=== PATIENT | male | born 1960 | race Caucasian/White ===

== ENCOUNTER 2025-02-04 03:20 | Emergency (ER) | payer MEDICAID ==
[2025-02-04 03:50] LABS: BASOPHILS ABSOLUTE AUTO 0.1 x10-3/uL (0.0-0.3); BASOPHILS PERCENT AUTO 1.1 % (0.3-3.8); EOSINOPHILS ABSOLUTE AUTO 0.4 x10-3/uL (0.0-0.6); EOSINOPHILS PERCENT AUTO 6.2 % (0.1-6.8); LYMPHOCYTES ABSOLUTE AUTO 1.8 x10-3/uL (0.5-4.5); LYMPHOCYTES PERCENT AUTO 24.4 % (15.8-45.3); MEAN PLATELET VOLUME 7.9 fL (6.7-11.0); MONOCYTES ABSOLUTE AUTO 1.0 x10-3/uL (0.0-1.2); MONOCYTES PERCENT AUTO 13.6 % (5.5-15.2); NEUTROPHILS ABSOLUTE AUTO 4.0 x10-3/uL (1.7-6.9); NEUTROPHILS PERCENT AUTO 54.7 % (40.3-71.8); PLATELET COUNT,PLT 138 x10(3)uL (117-477); RED BLOOD CELL COUNT 4.07 x10(6)uL (3.90-5.90); RED CELL DISTRIBUTION WIDTH 14.3 % (12.4-15.0); WHITE BLOOD CELL COUNT,WBC 7.3 x10-3/uL (3.2-10.1)
[2025-02-04 03:59] LABS: INR 1.35 (1.00-1.24)
[2025-02-04 04:00] LABS: A/G RATIO 0.7; ALANINE AMINOTRANSFERASE,ALT 33 U/L (12-36); ASPARTATE AMNIOTRANSFERASE,AST 42 IU/L (5-25); BILIRUBIN TOTAL 0.9 mg/dL (0.1-1.3); BLOOD UREA NITROGEN,BUN 11 mg/dL (7-18); CARBON DIOXIDE,CO2 25 mmol/L (21-32); CHLORIDE,CL 103 mmol/L (100-110); CREATININE 1.2 mg/dL (0.70-1.30); ESTIMATED GFR 68 mL/min (>60); GLUCOSE RANDOM 137 mg/dL (80-116); POTASSIUM,K 3.8 mmol/L (3.5-5.3); PROTEIN TOTAL,TP 7.8 g/dL (6.0-8.0); SODIUM,NA 137 mmol/L (135-145)
[2025-02-04] MEDS: Diphtheria/Tetanus Toxoids,Adult (Td) 0.5 ML SDV IM ONE (05:23)
== END 2025-02-04 08:35 | disposition home or self-care (01) ==
LOC: FB.ED 03:20
DX: S01.91XA Laceration without foreign body of unspecified part of head, initial encounter (principal); Z79.01 Long term (current) use of anticoagulants; Z79.899 Other long term (current) drug therapy; X58.XXXA Exposure to other specified factors, initial encounter
CPT/HCPCS: 12002; 36415; 70450; 72125; 80053; 80307; 85025; 85610; 99283; 99284